=== PATIENT | male | born 1985 | race Two or more races ===

== ENCOUNTER 2023-05-30 16:18 | Outpatient (REF) | payer OTHER, SELFPAY | END 2023-05-30 16:19 | disposition home or self-care (01) | LOC: HO.CHCLNP 16:18 | PROVIDERS: Visit Provider Family Medicine | DX: Z11.52 Encounter for screening for COVID-19 (principal); Z20.822 Contact with and (suspected) exposure to COVID-19; J06.9 Acute upper respiratory infection, unspecified | CPT/HCPCS: 0241U; 87070 ==

== ENCOUNTER 2024-05-22 09:30 | Outpatient (REF) | payer OTHER, SELFPAY ==
[2024-05-22 14:13] LABS: MANUAL DIFF FLAG NO
[2024-05-22 14:19] LABS: Basophils Percent Auto 0.4 % (0-2); Eosinophils Absolute Auto 0.1 X10*3/uL (0.0-0.4); Hematocrit 45.6 % (42.0-52.0); Hemoglobin 15.6 g/dl (14.0-18.0); Imm Gran Abs Auto 0.02 X10*3/uL (0.00-0.03); Imm Gran Pct Auto 0.4 % (0.0-0.4); Lymphocytes Absolute Auto 2.1 X10*3/uL (1.2-4.9); Lymphocytes Percent Auto 37.2 % (20-40); Mean Corpuscular HGB Conc 34.2 g/dl (31.0-36.0); Mean Corpuscular Volume 90.7 fL (80.0-98.0); Mean Platelet Volume 9.6 fL (9.4-12.4); Monocytes Absolute Auto 0.6 X10*3/uL (0.1-1.2); Monocytes Percent Auto 10.7 % (2-11); Neutrophils Absolute Auto 2.8 x10*3/uL (2.0-8.3); Neutrophils Percent Auto 49.3 % (45-73); Platelet Count 257 X10*3/uL (160-400); Red Blood Count 5.03 X10*6/uL (4.60-5.80); Red Cell Distribution Width 12.1 % (11.0-16.0); White Blood Count 5.6 X10*3/uL (4.8-10.8)
[2024-05-22 15:02] LABS: Alanine Aminotransferase 19 U/L (0-40); Albumin Level 4.7 g/dL (3.5-5.0); Alkaline Phosphatase 59 U/L (39-117); Anion Gap 13 (12-20); Aspartate Amino Transferase 17 U/L (5-37); Bilirubin Total 0.5 mg/dL (0.0-1.0); Blood Urea Nitrogen 20 mg/dL (9-16); Calcium 10.1 mg/dL (8.4-10.2); Carbon Dioxide 29 mmol/L (22-29); Chloride 103 mmol/L (96-108); Estimated Glomerular Filt Rate > 60; Glucose Random 87 mg/dL (60-115); Iron 93 mcg/dL (45-160); Percent Iron Saturation 33 % (15-50); Potassium 3.5 mmol/L (3.3-5.1); Sodium 141 mmol/L (135-145); TSH reflex Free T4 0.77 uIU/mL (0.32-4.0); Total Iron Binding Capacity 281 mcg/dL (228-428); Total Protein 7.8 g/dL (6.5-8.0); Unsaturated Iron Binding 188 ug/dL; Vitamin D 25-OH Total 129.9 ng/mL (>30)
[2024-05-22 15:13] LABS: Folate 15.8 ng/mL (> or = 4.0); Vitamin B12 1777 pg/mL (200-900)
[2024-05-28 10:34] LABS: Testosterone, Free 66.4 pg/mL (35.0-155.0); Testosterone, Total 415 ng/dL (250-1100)
== END 2024-05-22 09:31 | disposition home or self-care (01) ==
LOC: HO.CHCLDS 09:30
PROVIDERS: Visit Provider Internal Medicine
DX: R53.83 Other fatigue (principal); E55.9 Vitamin D deficiency, unspecified
CPT/HCPCS: 36415; 80053; 82306; 82607; 82746; 83540; 84402; 84403; 84443; 85025